=== PATIENT | male | born 1985 | race African-American/Black ===

== ENCOUNTER 2017-06-26 19:35 | Emergency (ER) | payer SELFPAY ==
[2017-06-26] MEDS ORDERED: DEXAMETHASONE 10 MG/ML VIAL ONE (21:57)
[2017-06-26] MEDS ORDERED: METOCLOPRAMIDE 5 MG TAB ONE (21:57)
[2017-06-26] MEDS ORDERED: DIPHENHYDRAMINE 25 MG TAB/CAP ONE (21:57)
--- NOTE | 2017-06-26 23:49 | ER ---
Nurse's Notes [facility] Name: Stephania Lewis Age: 31 yrs Sex: Male : 1985 Arrival Date: 06/26/2017 Time: 19:48 Bed 7 Private MD: Diagnosis: Headache;Essential (primary) hypertension Presentation: 06/26 19:50 Presenting complaint: Patient states: that he has been having headache x 2 days and fc checked his bp today and it was high (169/108). Also having right lower back pain but was at [employer] with kids and thinks he may have pain due to that. Transition of care: patient was not received from another setting of care. Onset of symptoms was June 24, 2017. Care prior to arrival: None. 19:50 Method Of Arrival: Ambulatory 19:50 Acuity: DEMI 3 Triage Assessment: 19:54 General: Appears comfortable, Behavior is calm, cooperative, appropriate for age. Pain: fc Complains of pain in head and right lower back Pain currently is 4 out of 10 on a pain scale. Quality of pain is described as aching, dull, Pain began 2-3 days ago. Is continuous, Aggravated by increased activity, repositioning. EENT: No deficits noted. Neuro: Level of Consciousness is awake, alert, obeys commands, Oriented to person, place, time, situation, Nursery Hand are equal bilaterally Moves all extremities. Full function Gait is steady, Speech is normal, Facial symmetry appears normal, Reports headache in right frontal area. Cardiovascular: No deficits noted. Respiratory: No deficits noted. GI: No deficits noted. : No deficits noted. Derm: Skin is pink, warm \T\ dry. Musculoskeletal: Circulation, motion, and sensation intact. Capillary refill < 3 seconds, Range of motion: intact in all extremities, Reports pain in right lower back. Historical: - Allergies: 19:54 No Known Allergies; fc - Home Meds: 19:54 None [Active]; fc - PMHx: 19:54 None; fc - PSHx: 19:54 None; fc - Immunization history:: Last tetanus immunization: up to date. - Social history:: Smoking status: Patient/guardian denies using tobacco, Patient/guardian denies using alcohol, street drugs. Screenin:52 Abuse screen: Denies threats or abuse. Denies injuries from another. Nutritional ak1 screening: No deficits noted. Tuberculosis screening: No symptoms or risk factors identified. Fall Risk None identified. Assessment: 20:47 Reassessment: Patient appears in no apparent distress at this time. No changes from ak1 previously documented assessment. Patient is alert, oriented x 3, equal unlabored respirations, skin warm/dry/pink. Patient states feeling better. Patient states symptoms have improved. General: Appears in no apparent distress. Behavior is calm, cooperative. Pain: Complains of pain in headache Pain currently is 4 out of 10 on a pain scale. Neuro: Level of Consciousness is awake, alert, obeys commands, Oriented to person, place, time, situation, Nursery Hand are equal bilaterally Moves all extremities. Gait is steady, Speech is normal, Facial symmetry appears normal, Pupils are PERRLA. Cardiovascular: No deficits noted. Respiratory: No deficits noted. GI: No signs and/or symptoms were reported involving the gastrointestinal system. : No signs and/or symptoms were reported regarding the genitourinary system. EENT: No signs and/or symptoms were reported regarding the EENT system. Derm: No signs and/or symptoms reported regarding the dermatologic system. Musculoskeletal: No signs and/or symptoms reported regarding the musculoskeletal system. 21:23 Reassessment: Patient appears in no apparent distress at this time. No changes from ak1 previously documented assessment. Patient is alert, oriented x 3, equal unlabored respirations, skin warm/dry/pink. ERP at the bedside. 21:46 Reassessment: pt informed of need for CT and possible duration of results. pt due to a ak1 drug screen for work in the morning, pt and informed of proper documentation to take with him to his drug screen. . 22:24 Reassessment: Patient appears in no apparent distress at this time. Patient is alert, ak1 oriented x 3, equal unlabored respirations, skin warm/dry/pink. pt denies pain. pt informed of wait for CT results. Patient states feeling better. Vital Signs: 19:56 BP 147 / 90; Pulse 78; Resp 18; Temp 98.2(O); Pulse Ox 99% on R/A; Weight 94.35 kg (R); fc Height 5 ft. 7 in. (170.18 cm) (R); Pain 4/10; 20:51 BP 157 / 89; Pulse 73; Resp 18; Temp 98.2; Pulse Ox 99% on R/A; Pain 4/10; ak1 21:23 BP 152 / 97; Pulse 77; Resp 18; Pulse Ox 100% on R/A; ak1 22:15 BP 162 / 110 LA Sitting (auto/lg); Pulse 74; Resp 18; Pulse Ox 100% on R/A; ak1 22:24 BP 174 / 111 RA Sitting (auto/lg); Pulse 73; Resp 18; Pulse Ox 99% on R/A; ak1 23:17 BP 170 / 111; Pulse 74; Resp 18; Temp 98.2(TE); Pulse Ox 98% on R/A; ak1 23:43 BP 171 / 109 RA Sitting (auto/lg); Pulse 79; Resp 18; Temp 98; Pulse Ox 99% on R/A; ak1 23:43 BP 163 / 108 LA Sitting (auto/lg); Pulse 86; Resp 18; Temp 98; Pulse Ox 100% on R/A; ak1 Pain 0/10; 23:46 BP 142 / 92 RA Sitting (man/reg); ak1 19:56 Body Mass Index 32.58 (94.35 kg, 170.18 cm) fc 23:46 manual BP done by Sonia Rae RN ak1 ED Course: 19:48 Patient arrived in ED. ds1 19:53 Triage completed. fc 19:55 Arm band placed on left wrist. Patient placed in waiting room, Patient notified of wait fc time. 20:47 Shante Barrow, RN is Primary Nurse. ak1 20:52 Patient has correct armband on for positive identification. Call light in reach. Side ak1 rails up X 1. Pulse ox on. NIBP on. 20:53 John Ferguson, GAMING COMMISSIONER is PHCP. pm1 20:53 Lenin Neri MD is Attending Physician. pm1 22:07 CT completed. Patient tolerated procedure well. Patient moved to CT via wheelchair. sj Patient moved back from CT. 22:07 CT Head Brain wo Cont In Process Unspecified. EDMS 22:25 Notified Nurse Practitioner and/or Physician Rental Car Ferry Driver of vital signs. ak1 23:55 No provider procedures requiring assistance completed. Patient did not have IV access ak1 during this emergency room visit. Administered Medications: 21:44 Drug: Benadryl 25 mg Route: PO; ak1 23:54 Follow up: Response: No adverse reaction ak1 21:44 Drug: Reglan 10 mg Route: PO; ak1 23:54 Follow up: Response: No adverse reaction ak1 21:44 Drug: Decadron - Dexamethasone 10 mg {Note: given po with apple juice.} Route: IVP; ak1 Site: Other; 23:53 Follow up: Response: No adverse reaction ak1 Outcome: 23:48 Discharge ordered by MD. pm1 23:55 Discharged to home ambulatory, with family. ak1 23:55 Condition: stable 23:55 Discharge instructions given to patient, family, Instructed on discharge instructions, follow up and referral plans. Demonstrated understanding of instructions, follow-up care. 23:59 Patient left the ED. ak1 Signatures: Dispatcher [employer] Deedee Ozuna Felicia, RN RN fc [place], Demi ds1 Shante Barrow RN RN ak1 John Ferguson, PHILIP GAMING COMMISSIONER pm1
--- NOTE | 2017-06-26 23:49 | EDPHYS ---
Physician Documentation [facility] Name: Stephania Lewis Age: 31 yrs Sex: Male : 1985 Arrival Date: 06/26/2017 Time: 19:48 Bed 7 Private MD: ED Physician Lenin Neri HPI: 06/27 00:00 This 31 yrs old Black Male presents to ER via Ambulatory with complaints of Headache. pm1 00:00 The patient complains of pain to the forehead. The patient describes the headache as pm1 aching, constant. Onset: The symptoms/episode began/occurred 2 day(s) ago. Associated signs and symptoms: Pertinent negatives: dizziness, fever, nausea, neck stiffness, rash, vision changes, vomiting. Severity of symptoms: in the emergency department the pain is unchanged. Headache History: Denies prior headaches. The symptoms are alleviated by nothing. the symptoms are aggravated by nothing. The patient has not recently seen a physician, and does not have an established primary care provider. Patient with headache for two days and checked his blood pressure at [facility]. Patient's blood pressure reading was elevated and he wanted to be evaluated to see if headache and blood pressure were related. Patient without any chest pain, shortness of breath or fever. No weakness. 00:00 Patient does not take any medications for blood pressure. pm1 Historical: - Allergies: 06/26 19:54 No Known Allergies; fc - Home Meds: 19:54 None [Active]; fc - PMHx: 19:54 None; fc - PSHx: 19:54 None; fc - Immunization history:: Last tetanus immunization: up to date. - Social history:: Smoking status: Patient/guardian denies using tobacco, Patient/guardian denies using alcohol, street drugs. ROS: 06/27 00:00 Constitutional: Negative for fever, chills, and weight loss, Eyes: Negative for injury, pm1 pain, redness, and discharge, ENT: Negative for injury, pain, and discharge, Neck: Negative for injury, pain, and swelling, Cardiovascular: Negative for chest pain, palpitations, and edema, Respiratory: Negative for shortness of breath, cough, wheezing, and pleuritic chest pain, Abdomen/GI: Negative for abdominal pain, nausea, vomiting, diarrhea, and constipation, Back: Negative for injury and pain, MS/Extremity: Negative for injury and deformity, Skin: Negative for injury, rash, and discoloration. Neuro: Positive for headache, Negative for dizziness. Exam: 00:00 Constitutional: This is a well developed, well nourished patient who is awake, alert, pm1 and in no acute distress. Head/Face: Normocephalic, atraumatic. Eyes: Pupils equal round and reactive to light, extra-ocular motions intact. Lids and lashes normal. Conjunctiva and sclera are non-icteric and not injected. Cornea within normal limits. Periorbital areas with no swelling, redness, or edema. ENT: Nares patent. No nasal discharge, no septal abnormalities noted. Tympanic membranes are normal and external auditory canals are clear. Oropharynx with no redness, swelling, or masses, exudates, or evidence of obstruction, uvula midline. Mucous membranes moist. Neck: Trachea midline, no thyromegaly or masses palpated, and no cervical lymphadenopathy. Supple, full range of motion without nuchal rigidity, or vertebral point tenderness. No Meningismus. Chest/axilla: Normal chest wall appearance and motion. Nontender with no deformity. No lesions are appreciated. Cardiovascular: Regular rate and rhythm with a normal S1 and S2. No gallops, murmurs, or rubs. No pulse deficits. Respiratory: Lungs have equal breath sounds bilaterally, clear to auscultation and percussion. No rales, rhonchi or wheezes noted. No increased work of breathing, no retractions or nasal flaring. Abdomen/GI: Soft, non-tender, with normal bowel sounds. No distension or tympany. No guarding or rebound. No evidence of tenderness throughout. Back: No spinal tenderness. No costovertebral tenderness. Full range of motion. Skin: Warm, dry with normal turgor. Normal color with no rashes, no lesions, and no evidence of cellulitis. MS/ Extremity: Pulses equal, no cyanosis. Neurovascular intact. Full, normal range of motion. 00:00 Neuro: Orientation: is normal, Mentation: is normal, Cerebellar function: normal finger to nose testing, Motor: is normal, moves all fours, Sensation: is normal, no obvious gross deficits, Gait: is steady, at a normal pace, without difficulty. Vital Signs: 06/26 19:56 BP 147 / 90; Pulse 78; Resp 18; Temp 98.2(O); Pulse Ox 99% on R/A; Weight 94.35 kg (R); fc Height 5 ft. 7 in. (170.18 cm) (R); Pain 4/10; 20:51 BP 157 / 89; Pulse 73; Resp 18; Temp 98.2; Pulse Ox 99% on R/A; Pain 4/10; ak1 21:23 BP 152 / 97; Pulse 77; Resp 18; Pulse Ox 100% on R/A; ak1 22:15 BP 162 / 110 LA Sitting (auto/lg); Pulse 74; Resp 18; Pulse Ox 100% on R/A; ak1 22:24 BP 174 / 111 RA Sitting (auto/lg); Pulse 73; Resp 18; Pulse Ox 99% on R/A; ak1 23:17 BP 170 / 111; Pulse 74; Resp 18; Temp 98.2(TE); Pulse Ox 98% on R/A; ak1 23:43 BP 171 / 109 RA Sitting (auto/lg); Pulse 79; Resp 18; Temp 98; Pulse Ox 99% on R/A; ak1 23:43 BP 163 / 108 LA Sitting (auto/lg); Pulse 86; Resp 18; Temp 98; Pulse Ox 100% on R/A; ak1 Pain 0/10; 23:46 BP 142 / 92 RA Sitting (man/reg); ak1 19:56 Body Mass Index 32.58 (94.35 kg, 170.18 cm) fc 23:46 manual BP done by Sonia Rae RN ak1 MDM: 21:18 Patient medically screened. pm1 23:14 Data reviewed: vital signs. Data interpreted: Pulse oximetry: on room air is 99 %. pm1 Interpretation: normal. Counseling: I had a detailed discussion with the patient and/or guardian regarding: the historical points, exam findings, and any diagnostic results supporting the discharge/admit diagnosis, the need for outpatient follow up, to return to the emergency department if symptoms worsen or persist or if there are any questions or concerns that arise at home. 06/26 21:33 Order name: CT Head Brain wo Cont pm1 Administered Medications: 21:44 Drug: Benadryl 25 mg Route: PO; ak1 23:54 Follow up: Response: No adverse reaction ak1 21:44 Drug: Reglan 10 mg Route: PO; ak1 23:54 Follow up: Response: No adverse reaction ak1 21:44 Drug: Decadron - Dexamethasone 10 mg {Note: given po with apple juice.} Route: IVP; ak1 Site: Other; 23:53 Follow up: Response: No adverse reaction ak1 Disposition: 06/27 00:24 Co-signature as Attending Physician, Lenin Neri MD. savage Disposition: 06/26/17 23:48 Discharged to Home. Impression: Headache, Essential (primary) hypertension. - Condition is Stable. - Discharge Instructions: General Headache Without Cause, Hypertension, How to Take Your Blood Pressure, [id number], DASH Eating Plan, Managing Your High Blood Pressure. - Medication Reconciliation Form, Thank You Letter form. - Follow up: Emergency Department; When: As needed; Reason: Worsening of condition. Follow up: Private Physician; When: 2 - 3 days; Reason: Recheck today's complaints, Continuance of care, Re-evaluation by your physician. - Problem is new. - Symptoms have improved. Signatures: Dispatcher [employer] Lenin Dowd MD MD pkl Adela Story, RN RN Shante Barrow RN RN ak1 John Ferguson, AUTOMATIC MOLD SANDER AUTOMATIC MOLD SANDER pm1
--- NOTE | 2017-06-27 08:10 | RAD REPORT ---
EXAM DESCRIPTION: CT - Head Brain Wo Cont - 06/27/2017 6:48 am CLINICAL HISTORY: Headache for 2 days COMPARISON: None. TECHNIQUE: Computed axial tomography of the head was obtained. IV contrast was not requested. A prel iminary report was generated by [employer] and reviewed prior to this dictation All CT scans are performed using dose optimization technique as appropriate and may include automated exposure control or mA/KV adjustment according to patient size. FINDINGS: An intracranial bleed is not seen . The ventricles are normal in caliber. No extra-axial fluid collection is noted. Fluid within the sinuses/ mastoids is not seen. IMPRESSION: No acute intracranial abnormality is seen. If patient's symptoms persist MRI of the bra in would be recommended.
== END 2017-06-26 23:59 | disposition home or self-care (01) ==
LOC: ER 19:35
DX: I10 Essential (primary) hypertension (principal)
CPT/HCPCS: 70450; 96374; 99284; J1100